=== PATIENT | female | born 2000 | race American Indian/Alaskan Native ===

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

== ENCOUNTER 2021-06-07 16:49 | Emergency (ER) | payer SELFPAY ==
[2021-06-07 18:21] LABS: CORONAVIRUS COVID-19 NAA NEGATIVE (NEGATIVE); RESPIRATORY SYNCYTIAL VIR NAA NEGATIVE (NEGATIVE)
[2021-06-07 19:24] VITALS: BP 152/95; PULSE 113
--- NOTE | 2021-06-07 19:55 | EDM.PDOC ---
ED HPI GENERAL MEDICAL PROBLEM - General Chief Complaint: ENT Problem Stated Complaint: SORE THROAT AND RUNNY NOSE Time Seen by Provider: 06/07/21 19:45 Source of Information: Reports: Patient History Limitations: Reports: No Limitations - History of Present Illness INITIAL COMMENTS - FREE TEXT/NARRATIVE: This 20 yo female patient reports to the ED with a sore throat and congestion that started yesterday. The patient has not been taking anything for her symptoms at this time. Onset Date: 06/06/21 Duration: Constant, Getting Worse Location: Reports: Neck Quality: Reports: Other Severity: Moderate Improves with: Reports: None Worsens with: Reports: None Context: Reports: Other Associated Symptoms: Reports: No Other Symptoms Throat Pain Score (Numeric/FACES): 5 - Related Data Allergies Allergy/AdvReac Type Severity Reaction Status Date / Time No Known Allergies Allergy Verified 06/07/21 17:53 Home Meds: Home Meds . [No Known Home Meds] 03/23/18 [History] Past Medical History HEENT History: Reports: None Cardiovascular History: Reports: None Respiratory History: Reports: None Gastrointestinal History: Reports: None Genitourinary History: Reports: None INFORMATION OFFICER History: Reports: None Other Musculoskeletal History: Bowing of the legs and front-serrano tilting pelvis when patient was an infant Neurological History: Reports: None Psychiatric History: Reports: Depression Endocrine/Metabolic History: Reports: None Hematologic History: Reports: None Immunologic History: Reports: None Oncologic (Cancer) History: Reports: None Dermatologic History: Reports: None - Infectious Disease History Infectious Disease History: Reports: Chicken Pox - Past Surgical History Head Surgeries/Procedures: Reports: None Musculoskeletal Surgical History: Reports: Other (See Below) Other Musculoskeletal Surgeries/Procedures:: right hip surgery Social & Family History - Family History Family Medical History: No Pertinent Family History - Tobacco Use Tobacco Use Status *Q: Never Tobacco User Second Hand Smoke Exposure: No - Caffeine Use Caffeine Use: Reports: Soda - Recreational Drug Use Recreational Drug Use: No ED ROS ENT - Review of Systems Review Of Systems: Comprehensive ROS is negative, except as noted in HPI. ED EXAM, ENT - Physical Exam Exam: See Below Exam Limited By: No Limitations General Appearance: Alert, WD/WN, No Apparent Distress, Obese Eye Exam: Bilateral Eye: EOMI, Normal Inspection, PERRL Ears: Normal External Exam, Normal Canal, Hearing Grossly Normal, Normal TMs Nose: Normal Inspection, Normal Mucousa, No Blood Mouth/Throat: Normal Inspection, Normal Gums, Normal Lips, Normal Oropharynx, Normal Teeth Head: Atraumatic, Normocephalic Neck: Normal Inspection, Supple, Non-Tender, Full Range of Motion Respiratory/Chest: No Respiratory Distress, Lungs Clear, Normal Breath Sounds, No Accessory Muscle Use, Chest Non-Tender Cardiovascular: Normal Peripheral Pulses, Regular Rate, Rhythm, No Edema, No Gallop, No JVD, No Murmur, No Rub GI/Abdominal: Normal Bowel Sounds, Soft, Non-Tender, No Organomegaly, No Distention, No Abnormal Bruit, No Mass (Female) Exam: Deferred Rectal (Female) Exam: Deferred Back: Normal Inspection, Full Range of Motion Extremities: Normal Inspection, Normal Range of Motion, Non-Tender, No Pedal Edema, Normal Capillary Refill Neurological: Alert, Oriented, CN II-XII Intact, Normal Cognition, Normal Gait, Normal Reflexes, No Motor/Sensory Deficits Psychiatric: Normal Affect, Normal Mood Skin: Warm, Dry, Intact, Normal Color, No Rash Lymphatic: No Adenopathy Course - Vital Signs Last Recorded V/S: Last Vital Signs Temp 97.4 F 06/07/21 19:23 Pulse 113 H 06/07/21 19:23 Resp 20 06/07/21 19:23 BP 152/95 H 06/07/21 19:23 Pulse Ox 98 06/07/21 19:23 - Orders/Labs/Meds Orders: Active Orders 24 hr Category Date Time Status CULTURE STREP A CONFIRMATION [RM] Stat Lab 06/07/21 17:25 Results STREP SCRN A RAPID W CULT CONF [RM] Stat Lab 06/07/21 17:25 Results Labs: Laboratory Tests 06/07/21 Range/Units 17:25 Influenza Type A RNA Negative (NEGATIVE) RSV RNA (INAAT) Negative (NEGATIVE) Influenza Type B RNA Negative (NEGATIVE) SARS-CoV-2 RNA (ISH) Negative (NEGATIVE) Departure - Departure Time of Disposition: 19:53 Disposition: Home, Self-Care 01 Condition: Fair Clinical Impression: Viral URI - Discharge Information *PRESCRIPTION DRUG MONITORING PROGRAM REVIEWED*: Not Applicable *COPY OF PRESCRIPTION DRUG MONITORING REPORT IN PATIENT MARGOT: Not Applicable Instructions: Viral Respiratory Infection, [id number] Care Plan Goals: The patient was advised of the examination and lab results during the visit. The patient was encouraged to take over the counter medications for temporary symptom relief. If the patient has any additional symptoms or concerns, the patient should either visit her primary care facility or return to the emergency department. Sepsis Event Note (ED) - Evaluation Sepsis Screening Result: No Definite Risk - Focused Exam Vital Signs: Vital Signs Temp Pulse Resp BP Pulse Ox 06/07/21 19:23 97.4 F 113 H 20 152/95 H 98 06/07/21 17:49 99.3 F 103 H 16 154/85 H 100
== END 2021-06-07 19:56 | disposition home or self-care (01) ==
LOC: DL.ED 16:49
DX: J06.9 Acute upper respiratory infection, unspecified (principal); Z20.822 Contact with and (suspected) exposure to COVID-19
CPT/HCPCS: 0241U; 87081; 87430; 99283

== ENCOUNTER 2023-08-19 13:04 | Emergency (ER) | payer SELFPAY ==
[2023-08-19] MEDS: Ketorolac 30 MG/ML SDV IVPUSH ONE (13:21)
[2023-08-19] MEDS: Iopamidol 612 MG/ML 100 ML Bottle IVPUSH ONE (13:26)
[2023-08-19 14:27] LABS: APPEARANCE,URINE CLEAR (CLEAR); BILIRUBIN,URINE NEGATIVE (NEGATIVE); COLOR,URINE YELLOW (YELLOW); GLUCOSE,URINE NEGATIVE (NEGATIVE); KETONES,URINE TRACE (NEGATIVE); LEUKOCYTE ESTERASE,URINE NEGATIVE (NEGATIVE); NITRITE,URINE NEGATIVE (NEGATIVE); OCCULT BLOOD,URINE LARGE (NEGATIVE); PROTEIN,URINE NEGATIVE (NEGATIVE); UROBILINOGEN,URINE 0.2 mg/dL (0.2-1.0)
[2023-08-19 14:46] VITALS: BP 141/85; PULSE 90
[2023-08-19 15:01] LABS: BACTERIA,URINE FEW /HPF (0-FEW/HPF); EPITHELIAL CELLS,URINE OCCASIONAL /HPF (NOT SEEN); MUCUS,URINE FEW /LPF (NOT SEEN); RBC,URINE 40-50 /HPF (0-5); WBC,URINE 0-5 /HPF (0-5/HPF)
== END 2023-08-19 14:35 | disposition home or self-care (01) ==
LOC: DL.ED 13:04
DX: N13.2 Hydronephrosis with renal and ureteral calculous obstruction (principal)
CPT/HCPCS: 74178; 81001; 96374; 99284; 99284-25; J1885; Q9967

== ENCOUNTER 2025-03-11 17:36 | Emergency (ER) | payer BC, OTHER ==
[2025-03-11 17:51] VITALS: BP 180/97; PULSE 100
[2025-03-11 18:29] LABS: AMPHETAMINES,URINE NEGATIVE (NEGATIVE); BARBITURATES,URINE NEGATIVE (NEGATIVE); MDMA (ECSTASY), URINE NEGATIVE (NEGATIVE); METHAMPHETAMINES,URINE NEGATIVE (NEGATIVE); OPIATES,URINE NEGATIVE (NEGATIVE); OXYCODONE,URINE NEGATIVE (NEGATIVE); PHENCYCLIDINE,URINE NEGATIVE (NEGATIVE); TCA,URINE NEGATIVE (NEGATIVE)
[2025-03-11] MEDS: Take Home: Ondansetron 4 MG Tab.DIS, 5 Tab Pack PO ONE (18:43)
[2025-03-11] MEDS: Orphenadrine 60 MG/2 ML Inj IM ONE (18:44)
[2025-03-11] MEDS: Take Home: Cyclobenzaprine 10 MG Tab, 4 Tab Pack PO ONE (18:44)
[2025-03-11] MEDS: Ondansetron 4 MG Tab.DIS PO ONE (18:44)
[2025-03-11] MEDS: Ketorolac 30 MG/ML SDV IM ONE (18:44)
== END 2025-03-11 18:47 | disposition home or self-care (01) ==
LOC: DL.ED 17:36
DX: M62.830 Muscle spasm of back (principal); Z87.828 Personal history of other (healed) physical injury and trauma; Z87.81 Personal history of (healed) traumatic fracture
CPT/HCPCS: 80305; 96372; 99283; A9270; J1885; J2360; Q0162

== ENCOUNTER 2025-05-10 17:33 | Emergency (ER) | payer BC, OTHER ==
[2025-05-10 18:53] VITALS: BP 124/68; PULSE 74
== END 2025-05-10 18:51 | disposition home or self-care (01) ==
LOC: DL.ED 17:33
DX: M54.50 Low back pain, unspecified (principal); Z86.16 Personal history of COVID-19
CPT/HCPCS: 72100; 99283; A9270; 99282